=== PATIENT | female | born 1995 | race Caucasian/White ===

== ENCOUNTER 2017-02-23 22:16 | Emergency (ER) | payer MEDICAID ==
[~2017-02-23] VITALS: Ht 154.9 cm; Wt 72.7 kg
[2017-02-23 22:21] VITALS: Ht 154.9 cm; Wt 72.7 kg
[2017-02-23] MEDS ORDERED: IBUPROFEN 200 MG TAB PO ONE (22:30)
--- NOTE | 2017-02-23 22:34 | ERA ---
ER Documentation Chief Complaint Date/Time DATE: 02/23/17 TIME: 22:30 Chief Complaint r ankle pain s/p twisted ankle w/ "cracking sound" today. +swelling/tender HPI 19-year-old female with a chief complaint of ankle pain after rolling it yesterday. Patient describes hearing a click and a pop and pop it back in place. Patient denies any numbness tingling or loss of range of motion. Patient denies trauma to any other parts of the body. Patient denies radiation of pain or swelling. Patient has ice and taking ibuprofen with minimal relief. ROS All systems reviewed and are negative except as per history of present illness. Medications Home Meds Active Scripts Ibuprofen* (Motrin*) 400 Mg Tab, 400 MG PO Q6, #30 TAB Prov:LOBO DORMAN PA-C 02/23/17 Allergies Allergies: Coded Allergies: No Known Allergy (Unverified , 02/23/17) Physical Exam Vitals Vital Signs Date Time Temp Pulse Resp B/P Pulse Ox O2 Delivery O2 Flow Rate FiO2 02/23/17 22:21 98.2 100 16 156/73 99 Physical Exam Const: Morbidly obese 21-year-old female. Head: Atraumatic Eyes: Normal Conjunctiva ENT: Normal External Ears, Nose and Mouth. Neck: Full range of motion..~ No meningismus. Resp: Clear to auscultation bilaterally Cardio: Regular rate and rhythm, no murmurs Abd: Soft, non tender, non distended. Normal bowel sounds Skin: No petechiae or rashes Back: No midline or flank tenderness Ext: No cyanosis, or edema. Right ankle range of motion limited secondary to pain. Ankle reflex is unable to be obtained. Negative anterior drawer of the ankle. Neur: Awake and alert. Neurovascularly intact bilaterally. Psych: Normal Mood and Affect Results 24 hrs Current Medications Medications (Trade) Dose Ordered Sig/Radha Route PRN Reason Start Time Stop Time Status Last Admin Dose Admin Ibuprofen (Motrin) 400 mg ONCE ONCE PO 02/23/17 22:30 02/23/17 22:52 DC Procedures/MDM Ankle trauma 1 day ago with minimal swelling and moderate pain. Patient is neurovascularly intact and range of motion is limited secondary to pain. At this time I do not believe there is any neuro vascular involvement. We will get an x-ray to rule out bony pathology. Patient's x-ray was unremarkable. We will go ahead and wrap ankle with an [place] wrap. Patient already has crutches for assisted ambulation. Will educate patient on Rice therapy. Patient's vitals are stable and will be discharged at this time with a recommendation to follow-up with PCP in the next 1-3 days for possible referral to specialist as we cannot rule out bony pathology at this time. Ibuprofen will be prescribed for pain and inflammation. Departure Diagnosis: Primary Impression: Right ankle strain Qualified Code: S96.911A - Right ankle strain, initial encounter Additional Impression: Right ankle sprain Qualified Code: S93.401A - Sprain of right ankle, unspecified ligament, initial encounter Condition: Stable Additional Instructions: Follow up with your PCP within the next 1-3 days for a more thorough evaluation and a possible referral to a specialist. At this time I am unable to rule out ligament or tendon pathology. Return the the emergency department immediately if symptoms worsen or change. If you have any questions regarding medications, ask your pharmacist or us before you leave. If any adverse reactions occur while taking your medications, discontinue the treatment and return to the emergency department immediately. LOBO DORMAN PA-C Feb 23, 2017 22:34
--- NOTE | 2017-02-23 23:24 | RADRPT ---
PROCEDURE: XR Ankle. CLINICAL INDICATION: Right ankle pain. TECHNIQUE: Three views of the right ankle. COMPARISON: None available. FINDINGS: No fracture or dislocation is identified. The ankle mortise appears intact in this nonstressed stud y. The joint spaces are preserved. There is no significant soft tissue swelling. IMPRESSION: 1. No fracture or dislocation of the right ankle. RPTAT: HTAR .Aleks Corral MD, MD Date Time Electronically viewed and signed by .Aleks Corral MD, on 02/23/2017 23:23 .R/
[2017-02-23] MEDS ORDERED: IBUP400T22 PO (23:32)
== END 2017-02-23 23:49 | disposition home or self-care (01) ==
LOC: FTE 22:16
DX: S96.911A Strain of unspecified muscle and tendon at ankle and foot level, right foot, initial encounter (principal); S93.401A Sprain of unspecified ligament of right ankle, initial encounter; X50.1XXA Overexertion from prolonged static or awkward postures, initial encounter; Y92.9 Unspecified place or not applicable
CPT/HCPCS: 73610; Z7502; Z7610